=== PATIENT | male | born 1970 | race Caucasian/White ===

== ENCOUNTER 2023-11-20 18:43 | Emergency (ER) | payer OTHER, SELFPAY ==
[2023-11-20 18:55] VITALS: BP 150/86
--- NOTE | 2023-11-20 20:30 | ED.GENMED ---
History of Present Illness
General
Chief Complaint: Back Pain
Source: patient
Exam Limitations: none
Time Seen by Provider: 11/20/23 20:21
Travel History
Have you had any contact with someone who has COVID-19?: No
Do you have any symptoms of coronavirus? Fever > 100 degrees, chills, cough, shortness of breath, sore throat, loss of taste or smell, muscle aches, or headache?: No
History of Present Illness
History of Present Illness:
See MDM
Past History
Past History
ED Past Medical History: IDDM, Other (back pain) and Other (Hypertriglyceridemia)
ED Past Surgical History: Negative Orthopedic
Social History
Tobacco: Former smoker
Alcohol: None
Drug: None
Personal:
Living: with family
Employment: Employed
Family History
Family History: Other (Noncontributory)
Phy Exam
Physical Exam
Physical Exam:
See MDM
Course
Orders/Labs/Results
Orders:
Orders
11/20/23 20:27
Diazepam [Valium] 5 mg PO NOW STA
11/20/23 21:36
Ketorolac [Toradol] 30 mg IM NOW STA
11/20/23 22:08
Oxycodone/Acetaminophen [Percocet 5/325] 1 tablet PO NOW STA
Vital Signs
Initial and Last Documented VS:
Initial Vital Signs
Temp Pulse Resp BP Pulse Ox
98.6 F 77 20 150/86 96
11/20/23 18:55 11/20/23 18:55 11/20/23 18:55 11/20/23 18:55 11/20/23 18:55
Last Documented Vital Signs
Temp Pulse Resp BP Pulse Ox
98.6 F 77 20 150/86 96
11/20/23 18:55 11/20/23 18:55 11/20/23 18:55 11/20/23 18:55 11/20/23 18:55
MDM/Problems Addressed
Differential Diagnosis Includes:
HPI and MDM Narrative:
53-year-old male presenting with right-sided back pain. He states it goes from his right mid back and around his ribs. He denies rash. This occurred after he spent all weekend drywalling his garage. He started taking Motrin but stopped due to
upset stomach. He denies any weakness in his legs, fevers or trouble with urination or defecation
On exam, patient has clinical signs of muscle spasm. No rash noted. Lungs are clear. Will give dose of Valium and continue to reevaluate
Physical exam
General: Mildly uncomfortable but ambulating without difficulty
HEENT: protecting airway
Neck: appears supple
CV: No evidence of cyanosis
Resp: No accessory muscle use. Lungs clear along posterior lateral segments
Back: Spasm to right para thoracic musculature
Abd: Non-distended
Extremities: No deformities
Neuro: alert
Psych: Normal affect
Skin: Intact
Problems Addressed including Acute and Chronic Conditions affecting care:
1. Muscle spasm
Acuity: acute
Prognosis: stable
Details: Will give dose of Valium and continue to reassess
Updates
Reassessment, patient feeling somewhat better. Patient would like to avoid narcotics. Will prescribe Celebrex in addition to the Valium
Patient still feels mildly uncomfortable after the Toradol. I discussed the neck step would be narcotic. Patient is comfortable starting narcotics.
Differential Diagnosis (but not limited to): Muscle spasm, back pain
Testing considered: Chest x-ray but lungs clear
Drug therapy (if applicable): OTC meds, please see d/c instruction regarding Rx drugs
Amount and/or Complexity of Data Reviewed
Clinical info obtained from: Patient
External data reviewed: N/A
Labs I independently reviewed (but not limited to): N/A
Radiology: N/A
Pulse Ox: not hypoxic
EKG independently reviewed: N/A
Food Safety Officer: N/A
Critical Care: N/A
Risk of Complication:
Social Determinants of health: Good social support
Discussed with other providers: N/A
Escalation of Care includes Admit/Obs: After being observed in the Emergency Department, pt stable for discharge.
Occasional wrong word or 'sound a like' substitutions may have occurred due to the inherent limitations of voice recognition software. Read the chart carefully and recognize, using context, where substitutions have occurred.
*Critical Care Note
Total Time (30-74mins, 75-104mins- exclusive of procedures): Not Applicable
ED Attending Note
-
Portions of this chart may have been created with voice recognition software.� Occasional wrong word or��sound alike� substitutions may have occurred due to the inherent limitations of voice recognition software.
Discharge Plan
Departure
Patient Disposition: Home (Routine Discharge)
Date of Disposition: 11/20/23
Time of Disposition: 21:52
Patient with high blood pressure during this ER visit?: Yes
Discharge Problem:
Back muscle spasm
Instructions: Low Back Pain (DC), BLOOD PRESSURE
Prescriptions:
New
diazepam [Valium] 5 mg tablet
5 mg PO BID PRN (Reason: muscle spasm) Qty: 14 0RF
celecoxib [Celebrex] 200 mg capsule
200 mg PO DAILY Qty: 14 0RF
oxycodone 5 mg tablet
5 mg PO Q8H PRN (Reason: Pain) Qty: 10 0RF
No Action
calcium carbonate-mag hydroxid [Rolaids] 1 EACH tablet,chewable
2 ea PO DAILYPRN PRN (Reason: heartburn)
cetirizine 10 MG tablet
10 mg PO DAILY
aspirin 325 MG tablet,delayed release (DR/EC)
650 mg PO DAILYPRN PRN (Reason: shoulder pain)
Referrals:
Ammon Owen DO [Family Provider] -
Activity Restrictions/Additional Instructions:
Please return for any worsening symptoms.
You may return at any time if you have further concerns.
Please follow up with your doctor at the first available appointment, preferably this week.
You were given a prescription for narcotics. If you require this pain medicine, please take a daily [id number] stool softener to avoid constipation.
Thank you for choosing [facility].
Interventions
Interventions:
ED-Musculoskeletal Assessment Last Done: 11/20/23 22:03
[2023-11-20] MEDS: VALIUM 5 MG PO (21:08)
[2023-11-20] MEDS: TORADOL 30 MG IM (21:45)
[2023-11-20] MEDS: PERCOCET 5/325 1 TABLET PO (22:11)
== END 2023-11-20 22:24 | disposition home or self-care (01) ==
LOC: EMR 18:43
PROVIDERS: EMERGENCY PHYSICIAN Student in an Organized Health Care Education/Training Program; FAMILY PHYSICIAN Internal Medicine
DX: M62.830 Muscle spasm of back (principal); R03.0 Elevated blood-pressure reading, without diagnosis of hypertension; Z87.891 Personal history of nicotine dependence
CPT/HCPCS: 99284; 96372

== ENCOUNTER → 2024-12-26 10:53 | Outpatient (REF) | payer OTHER, SELFPAY | LOC: RAD 10:53 | PROVIDERS: ATTENDING PHYSICIAN Family Medicine | DX: Z87.891 Personal history of nicotine dependence (principal); Z12.2 Encounter for screening for malignant neoplasm of respiratory organs | CPT/HCPCS: 71271 ==